=== PATIENT | male | born 1955 | race Caucasian/White ===

== ENCOUNTER 2025-01-10 12:23 | Day surgery (SDC) | payer OTHER, MEDICARE, SELFPAY ==
[2025-01-10 12:42] VITALS: BP 127/72; PULSE 83; RESP 18; TEMP 36.1; O2SAT 100
[2025-01-10] MEDS: LACTATED RINGERS 1,000 ML 42 ML IV (13:04)
--- NOTE | 2025-01-10 13:31 | P.HP_ITS ---
History of Present Illness
--- NOTE | 2025-01-10 13:31 | PM.HP.IH.1 ---
History of Present Illness History of Present Illness Date Patient Seen: 01/10/25 Time Patient Seen: 13:31 Chief complaint: Colonoscopy Narrative: Andry is a 69-year-old man here for colonoscopy. His last colonoscopy was about 5 years ago. He was had two other colonoscopies before that. He does not recall if polyps removed or not. It was not recall if he has had polyps any other times. No family history of colon cancer. PFSH Social History Smoking Status: Never smoker alcohol intake: current Meds Home Medications and Allergies Home Medications ?Medication ?Instructions ?Recorded ?Confirmed ?Type peg 3350-electrolytes 236 240 ml PO Q10M #4,000 mL 12/04/24 Rx gram-22.74 gram-6.74 gram-5.86 gram solution (Golytely) Allergies Allergy/AdvReac Type Severity Reaction Status Date / Time No Known Drug Allergies Allergy Verified 01/10/25 12:40 Exam Vital Signs (past 8 hours): - 01/10/25 12:42 Temperature 96.9 F L Pulse Rate 83 Respiratory Rate 18 Blood Pressure 127/72 Pulse Oximetry 100 Oxygen Delivery Method Room Air Oxygen Delivery Method Room Air Const General: healthy appearing Assessment & Plan Assessment and plan (1) Colon cancer screening: Status: Acute Plan Colonoscopy Time-Based Coding :: [TOTAL MINUTES] spent with patient and on the chart (including review of chart, obtaining history, exam, reviewing outside data, placing orders, documenting exam and treatment plan, and counseling patient) on [DATE]. PROFEE [employer] Tender Document charge(s): No
[2025-01-10 14:06] VITALS: BP 120/70; PULSE 72; RESP 15; TEMP 36.6; O2SAT 99
--- NOTE | 2025-01-10 14:06 | P.OP.COLON_ITS ---
Operative Date/Time/Diagnoses
--- NOTE | 2025-01-10 14:06 | PM.OP.COLON ---
Operative Date/Time/Diagnoses Date of procedure: 01/10/25 Time of procedure: 14:06 Pre-op diagnosis: Colon cancer screening Post-op diagnosis: same Procedure & Clinicians Study performed: Colonoscopy Same procedure(s) as scheduled: Yes Surgeon: Qasim Warner Anesthesia Type: MAC +/- Procedure Notes Procedure in detail: Surgeon: Qasim Warner MD Anesthesia: Zaria Federico FOUNDRY SUPERINTENDANT Procedure: The patient was brought to the endoscopy suite, placed in left lateral decubitus position. The patient was connected to monitoring devices. A time-out was performed. Sedation was administered. Once the patient was adequately sedated, a digital rectal exam was performed and was normal. The scope was then inserted and advanced to the cecum where the appendiceal orifice was identified and photographed. The scope was then slowly withdrawn over greater than 6 minutes. The mucosa was thoroughly inspected. There was 4 mm polyp in the cecum removed with a cold snare. The scope was retroflexed in the rectum. No other abnormalities were seen. The scope was straightened and removed. The patient was awakened and brought to recovery. Scope withdrawal time: 10 minutes Sedation time: 19 minute EBL: 2 mL Findings: 4 mm cecal polyp Estimated Blood Loss: 2 Complications: none Post-procedure Disposition: PACU
[2025-01-10 14:15] VITALS: BP 126/75; PULSE 65; RESP 15; TEMP 36.5; O2SAT 99
== END 2025-01-10 14:46 | disposition home or self-care (01) ==
PROVIDERS: PCP Nurse Practitioner; Referring Provider Surgery; Visit Provider Surgery
PROC: 0DJD8ZZ Inspection of Lower Intestinal Tract, Via Natural or Artificial Opening Endoscopic (ICD-10-PCS; CPT 45378; principal; 2025-01-10 13:30)
DX: Z12.11 Encounter for screening for malignant neoplasm of colon (principal); D12.0 Benign neoplasm of cecum
CPT/HCPCS: 45385; J2704; J7120